=== PATIENT | female | born 1975 ===

== ENCOUNTER 2023-08-05 08:21 | Outpatient (AMB) | payer OTHER, SELFPAY ==
--- NOTE | 2023-08-05 08:36 | AM.OFFWIN_ITS ---
Intake Vital Signs 3 08/05/23 08:42 Height 5 ft 4 in Weight 151 lb BMI 25.9 BP 120/70 Blood Pressure Location Lt brachial Position Sitting Pulse 78 Pulse Source Pulse Oximeter Temp 97.1 F Temp Source Temporal Artery Scan Pulse Oximetry (%) 99 Oxygen Delivery Method Room Air Intake Visit Reasons: [employer]/right side breast pain([phone]) Patient Tobacco Use Status: Never used Tobacco Is last menstrual period known: Yes Allergies No Known Allergies Allergy (Verified 08/05/23 08:45) Medication List - Last Reconciled 08/05/23 by Romelia Laws MD No Known Home Meds Do you need a note to return to daycare/school/sports/work: No HPI [employer]/right side breast pain([phone]) 2 HPI0 Details Patient is a 47-year-old female who is established at [facility] message uses Patient says that she called the clinic but they told her that she needs appointment and they do not have any She works in [employer] for extended number of hours Three days ago patient felt pain right side of breast which is still there so she came in for evaluation Patient had mammogram done about 3 months ago at [facility], she tells me that mammogram was benign There is no fever no chills there is no nipple discharge On examination patient is feeling tender 07:00 o'clock right breast, there is slightly firm small lump present There is no nipple discharge there is no lymphadenopathy. I have ordered diagnostic mammogram and ultrasound patient agree to do it at [facility]. [facility] Social History Patient Tobacco Use Status: Never used Tobacco Review of Systems Const All systems reviewed & are unremarkable except as noted in HPI and below Physical Exam Vital Signs: Last Vital Signs Temp 97.1 F 08/05/23 08:42 Pulse 78 08/05/23 08:42 BP 120/70 08/05/23 08:42 Pulse Ox 99 08/05/23 08:42 Oxygen Delivery Method Room Air 08/05/23 08:42 BMI result Body Mass Index 25.9 Const General: no acute distress Orientation/consciousness: patient oriented x3 Eyes General: appearance normal, both eyes and all related structures Chest Chest/axillae images: 2 1. Tender to palpation, slightly firm a small lump present, no nipple discharge no lymphadenopathy Resp Effort & Inspection: normal respiratory effort and able to speak in complete sentences Auscultation: clear to auscultation bilaterally Cardio Other: S1 S2 Neuro General: patient oriented x3 Psych Mental Status: mental status grossly normal Assessment & Plan Assessment & Plan (1) Breast lump on right side at 7 o'clock position: Code(s): N63.13 - Unspecified lump in the right breast, lower outer quadrant (2) Breast pain, right: Code(s): N64.4 - Mastodynia Plan Patient is a 47-year-old female who is established at [facility] message uses Patient says that she called the clinic but they told her that she needs appointment and they do not have any She works in [employer] for extended number of hours Three days ago patient felt pain right side of breast which is still there so she came in for evaluation Patient had mammogram done about 3 months ago at [facility], she tells me that mammogram was benign There is no fever no chills there is no nipple discharge On examination patient is feeling tender 07:00 o'clock right breast, there is slightly firm small lump present There is no nipple discharge there is no lymphadenopathy. I have ordered diagnostic mammogram and ultrasound patient agree to do it at [facility]. Orders: Orders 2 US breast RT complete Today N63.13 - Unspecified lump in the right breast, lower outer quadrant, N64.4 - Mastodynia MM tomosynthesis diagnostic RT Today N63.13 - Unspecified lump in the right breast, lower outer quadrant, N64.4 - Mastodynia Coding Level of Care Code New Pt Level 4 (56108) Diagnoses Breast lump on right side at 7 o'clock position N63.13 Breast pain, right N64.4
[2023-08-05 08:42] VITALS: BP 120/70; PULSE 78; TEMP 36.2; O2SAT 99; BMI 25.9
== END 2023-08-05 09:31 | disposition home or self-care (01) ==
PROVIDERS: Visit Provider Internal Medicine
DX: N63.13 Unspecified lump in the right breast, lower outer quadrant (principal); N64.4 Mastodynia
CPT/HCPCS: 99204

== ENCOUNTER 2023-09-08 12:29 | Outpatient (AMB) | payer OTHER, SELFPAY ==
--- NOTE | 2023-09-08 12:41 | AM.OFFWIN_ITS ---
Intake Vital Signs 09/08/23 12:45 Height 5 ft 4 in Weight 149 lb BMI 25.6 BP 130/82 Blood Pressure Location Lt brachial Position Sitting Pulse 115 H Pulse Source Pulse Oximeter Temp 99.9 F Temp Source Temporal Artery Scan Pulse Oximetry (%) 98 Oxygen Delivery Method Room Air Intake Visit Reasons: E Sore Throat, ear pain/Fever [phone] Intake Note: pt is here today for sore throat ear pain fever started thursday Patient Tobacco Use Status: Never used Tobacco Allergies No Known Allergies Allergy (Verified 08/05/23 08:45) Do you need a note to return to daycare/school/sports/work: No HPI HPI Comments History of Present Illness Details 48-year-old female presents today compla ining of cough fever chills sweats. [facility] Social History Patient Tobacco Use Status: Never used Tobacco Review of Systems Const Reports body aches, Reports chills, Reports fatigue and Reports fever(s) ENT Reports hearing loss, Reports nasal congestion, Reports nasal discharge, Reports sinus pain, Reports sinus pressure and Reports sore throat Resp Reports chest congestion and Reports cough Musc Reports myalgias Endo Reports fatigue Physical Exam Vital Signs: Last Vital Signs Temp 99.9 F 09/08/23 12:45 Pulse 115 H 09/08/23 12:45 BP 130/82 09/08/23 12:45 Pulse Ox 98 09/08/23 12:45 Oxygen Delivery Method Room Air 09/08/23 12:45 BMI result Body Mass Index 25.6 HEENT Head: Yes normal to inspection, Yes normocephalic and Yes atraumatic Ears: hearing grossly normal bilaterally, external ears normal, TM's normal bilaterally, TM normal on the right and TM normal on the left General nose exam: Normal external nose present Face and sinus: Yes normal facial exam Mouth: Normal oral and palatal mucosa present Throat: Yes posterior oropharynx normal Chest Chest palpation & inspection: normal inspection of the chest Resp Effort & Inspection: normal respiratory effort Auscultation: clear to auscultation bilaterally Cardio Rate: regular rate Rhythm: regular rhythm Assessment & Plan Assessment & Plan (1) Upper respiratory infection: Code(s): J06.9 - Acute upper respiratory infection, unspecified Plan: See plan Plan We will contact the patient tomorrow with the results of the viral culture. She has been told to drink plenty of fluids and rest and given a note for work. Orders: Orders 2 SARS-CoV2/FLU/RSV Today R09.89 - Other specified symptoms and signs involving the circulatory and respiratory systems Coding Level of Care Code Est Pt Level 3 (78482) Diagnoses Upper respiratory infection J06.9
[2023-09-08 12:45] VITALS: BP 130/82; PULSE 115; TEMP 37.7; O2SAT 98; BMI 25.6
== END 2023-09-08 15:08 | disposition home or self-care (01) ==
PROVIDERS: Visit Provider Physician Assistant Medical
DX: J06.9 Acute upper respiratory infection, unspecified (principal)
CPT/HCPCS: 99213

== ENCOUNTER 2023-09-08 13:53 | Outpatient (REF) | payer OTHER, SELFPAY ==
[2023-09-08 18:11] LABS: Influenza A PCR NEGATIVE (Negative); Influenza B PCR NEGATIVE (Negative); Resp Syncy Virus RNA Qual PCR NEGATIVE (Negative); SARS COV2 PCR INHOUSE POSITIVE (Negative)
== END 2023-09-08 13:54 | disposition home or self-care (01) ==
LOC: HO.LAB 13:53
PROVIDERS: Visit Provider Physician Assistant Medical
DX: Z11.52 Encounter for screening for COVID-19 (principal); Z20.822 Contact with and (suspected) exposure to COVID-19; R09.89 Other specified symptoms and signs involving the circulatory and respiratory systems
CPT/HCPCS: 0241U